=== PATIENT | female | born 1960 | race Caucasian/White ===

== ENCOUNTER → 2017-05-24 | Outpatient (CLI) | payer OTHER ==
--- NOTE | 2017-05-25 11:24 | MM ---
Reason for exam: screening (asymptomatic). Last mammogram was performed 2 years and 3 months ago. History: Patient is postmenopausal. Left Breast Aspiration of the left breast, October 11, 2011. Benign excisional biopsy of the left breast. Physical Findings: A clinical breast exam by your physician is recommended on an annual basis and results should be correlated with mammographic findings. MG Screening Mammo w CAD Bilateral CC, MLO, and XCCL view(s) were taken. Prior study comparison: February 25, 2015, bilateral MG screening mammo w CAD. October 11, 2011, left breast digital mammogram. The breast tissue is heterogeneously dense. This may lower the sensitivity of mammography. Focal asymmetry upper central right breast 4.9cm from nipple. This finding is changed when compared with previous exams. ASSESSMENT: Incomplete: need additional imaging evaluation, BI-RAD 0 RECOMMENDATION: Special view mammogram and ultrasound of the right breast. [facility] will attempt to contact patient to return for supplemental views and ultrasound.
== END | disposition home or self-care (01) ==
LOC: RADMAMWWP 14:41
PROVIDERS: ATTEND Family Medicine
DX: Z12.31 Encounter for screening mammogram for malignant neoplasm of breast (principal)

== ENCOUNTER → 2017-06-08 | Outpatient (CLI) | payer OTHER ==
--- NOTE | 2017-06-08 11:13 | MM ---
Reason for exam: additional evaluation requested from abnormal screening. Last mammogram was performed less than 1 month ago. History: Patient is postmenopausal. Left Breast Aspiration of the left breast, October 11, 2011. Benign excisional biopsy of the left breast. Physical Findings: Nurse Summary: 0.5cm nodule in the right breast at 6 o'clock (nurse kp). MG Work Up Mamm w CAD RT CC and MLO view(s) were taken of the right breast. Prior study comparison: May 24, 2017, bilateral MG screening mammo w CAD. February 25, 2015, bilateral MG screening mammo w CAD. There are scattered fibroglandular densities. The questioned upper outer quadrant focal asymmetry becomes less defined with spot views suggesting summation shadow. These results were verbally communicated with the patient and result sheet given to the patient on 06/08/17. ASSESSMENT: Incomplete: need additional imaging evaluation, BI-RAD 0 RECOMMENDATION: Ultrasound of the right breast.
--- NOTE | 2017-06-08 11:15 | USB ---
Reason for exam: additional evaluation requested from abnormal screening. History: Patient is postmenopausal. Left Breast Aspiration of the left breast, October 11, 2011. Benign excisional biopsy of the left breast. US Breast Workup Limited RT Right breast ultrasound demonstrates a 5 x 2 x 5mm oval, cystic, benign lesion at 10 o'clock, a 6mm benign node at the axilla tail and a 6mm benign lesion at the axilla tail. No solid or cystic lesion seen at the 6 o'clock nurse palpated site. These results were verbally communicated with the patient and result sheet given to the patient on 06/08/17. ASSESSMENT: Benign, BI-RAD 2 RECOMMENDATION: Return to routine screening mammogram schedule for both breasts. Manage on a clinical basis with regard to any suspicious palpable abnormality.
== END | disposition home or self-care (01) ==
LOC: RADMAMWWP 09:44
PROVIDERS: ATTEND Family Medicine
DX: R92.8 Other abnormal and inconclusive findings on diagnostic imaging of breast (principal)
CPT/HCPCS: 76642; G0206